=== PATIENT | female | born 1945 | race African-American/Black ===

== ENCOUNTER 2017-12-07 03:04 | Inpatient (IN) | payer OTHER ==
[~2017-12-07] VITALS: Ht 157.5 cm; Wt 77.1 kg
[2017-12-07] VITALS (7 sets, daily range): BP systolic 108–157; BP diastolic 60–85
[2017-12-07] MEDS ORDERED: ASPIRIN 81MG TABLET PO ONE (03:30)
[2017-12-07] MEDS ORDERED: NITROGLYCERIN OINT 1GM/INCH UDPKT TD ONE (03:30)
[2017-12-07] MEDS ORDERED: FUROSEMIDE 40MG/4ML VIAL IV ONE (03:30)
[2017-12-07] MEDS ORDERED: MULT-1195 MT (03:34)
[2017-12-07] MEDS ORDERED: VIT1TABL86 MT (03:34)
[2017-12-07] MEDS ORDERED: CALC0.253 PO (03:34)
[2017-12-07] MEDS ORDERED: HYDR100T26 MT (03:34)
[2017-12-07] MEDS ORDERED: LISI-604 MT (03:34)
[2017-12-07] MEDS ORDERED: ASPI-1159 MT (03:34)
[2017-12-07] MEDS ORDERED: CARV25TA47 MT (03:34)
[2017-12-07] MEDS ORDERED: LOVA20TA2 MT (03:34)
[2017-12-07] MEDS ORDERED: INSU100I28 SQ (03:34)
[2017-12-07] MEDS ORDERED: AMLO5TAB4 PO (03:34)
[2017-12-07] MEDS ORDERED: ALBU90AE INH (03:34)
[2017-12-07 04:56] LABS: BG BASE EXCESS -2.7 mmol/L (-2.0-2.0); BG BILEVEL POS AIRWAY PRESSURE 15/5; BG FRACTION INSPIRED OXYGEN 100; BG HCO3 ACT 20.6 mmol/L (22.0-26.0); BG PCO2 31.9 mmHg (35.0-45.0); BG PH 7.428 (7.350-7.450); BG PO2 363.9 mmHg (75.0-100.0); BG SAMPLE SITE LEFT RADIAL; BG VENT MODE MASK - BIPAP; BG VENT RATE 20 set
[2017-12-07 04:57] LABS: HEMATOCRIT. 31.8 % (36.0-48.0); HEMOGLOBIN. 10.6 g/dL (12.0-16.0); MEAN CORPUSCULAR HEMOGLOBIN 30.8 pg (28.0-32.0); MEAN CORPUSCULAR VOLUME 92.9 fL (81.0-99.0); MEAN PLATELET VOLUME 10.1 fl (7.4-10.4); PLATELET 206 x1000/uL (130-400); RED BLOOD CELL COUNT 3.43 mill/uL (4.2-5.4); RED CELL DISTRIBUTION WIDTH 14.6 % (11.6-14.6)
[2017-12-07 05:03] LABS: CHLORIDE 111 mEq/L (98-107)
[2017-12-07 05:08] LABS: INR 1.1; PARTIAL THROMBOPLASTIN TIME 24.3 sec (23.4-31.0); PROTHROMBIN TIME 10.6 sec (9.1-11.1)
[2017-12-07 07:29] LABS: PLATELET ESTIMATE NORMAL
[2017-12-07] MEDS ORDERED: MAGNESIUM/ALUMINUM HYDROXIDE/SIMETHICONE 30ML UDC PO PRN (12:00)
[2017-12-07] MEDS ORDERED: ACETAMINOPHEN 325MG TABLET PO PRN (12:00)
[2017-12-07] MEDS ORDERED: DEXTROSE 50% WATER 50ML SYRINGE IV PRN (12:00)
[2017-12-07] MEDS ORDERED: ONDANSETRON HCL 4MG/2ML INJ IV PRN (12:00)
[2017-12-07] MEDS ORDERED: GUAIFENESIN 200MG/10ML SUGAR FREE UDC PO PRN (12:00)
[2017-12-07] MEDS ORDERED: DIPHENHYDRAMINE 50MG/ML VIAL IV PRN (12:00)
[2017-12-07] MEDS ORDERED: IPRATROPIUM/ALBUTEROL 0.5-3(2.5)MG/3ML NEB INH PRN (12:00)
[2017-12-07] MEDS ORDERED: CLONIDINE 0.1MG TABLET PO PRN (12:00)
[2017-12-07] MEDS: IPRATROPIUM/ALBUTEROL 0.5-3(2.5)MG/3ML NEB HHN SCH ×4 (12:22→23:56)
[2017-12-07] MEDS: BLOOD SUGAR DIAGNOSTIC STRIP TEST SCH ×3 (12:30→21:02)
[2017-12-07] MEDS: INSULIN LISPRO 100 UNITS/ML SUBCUT SCH ×3 (13:00→21:00)
[2017-12-07] MEDS: SODIUM CHLORIDE 0.9% INJ 3ML FLUSH IVF SCH ×2 (13:45→21:59)
[2017-12-07] MEDS: FUROSEMIDE 40MG/4ML VIAL IVP SCH (16:36)
[2017-12-07] MEDS ORDERED: TEMAZEPAM 15MG CAPSULE PO PRN (18:45)
[2017-12-07] MEDS ORDERED: MAGNESIUM HYDROXIDE 400MG/5ML 30ML UDC PO PRN (18:45)
[2017-12-07] MEDS: OMEPRAZOLE 20MG CAPSULE EXTENDED RELEASE PO SCH (21:01)
[2017-12-07] MEDS: ATORVASTATIN CALCIUM 20MG TABLET PO SCH (21:01)
[2017-12-07] MEDS: LISINOPRIL 20MG TABLET PO SCH (21:01)
[2017-12-07] MEDS: HYDRALAZINE HCL 100MG TABLET PO SCH (21:01)
[2017-12-07] MEDS: CARVEDILOL 6.25 MG TABLET PO SCH (21:02)
[2017-12-08] VITALS (12 sets, daily range): BP systolic 122–165; BP diastolic 29–78
[2017-12-08] MEDS: IPRATROPIUM/ALBUTEROL 0.5-3(2.5)MG/3ML NEB HHN SCH ×5 (04:14→20:47)
[2017-12-08] MEDS: HYDRALAZINE HCL 100MG TABLET PO SCH ×3 (06:33→21:16)
[2017-12-08] MEDS: SODIUM CHLORIDE 0.9% INJ 3ML FLUSH IVF SCH ×2 (06:33→14:13)
[2017-12-08 06:35] LABS: BASOPHILS % 0.8 % (0.0-2.0); EOSINOPHILS % 3.2 % (0.0-5.0); HEMATOCRIT. 28.8 % (36.0-48.0); HEMOGLOBIN. 9.7 g/dL (12.0-16.0); LYMPHOCYTES % 19.9 % (20.0-50.0); MEAN CORPUSCULAR VOLUME 91.8 fL (81.0-99.0); MEAN PLATELET VOLUME 10.2 fl (7.4-10.4); MONOCYTES % 8.2 % (2.0-8.0); NEUTROPHILS % 67.9 % (40.0-76.0); PLATELET 206 x1000/uL (130-400); RED BLOOD CELL COUNT 3.14 mill/uL (4.2-5.4); RED CELL DISTRIBUTION WIDTH 14.4 % (11.6-14.6)
[2017-12-08 06:49] LABS: CHLORIDE 109 mEq/L (98-107)
[2017-12-08 07:04] LABS: LDL CHOLESTEROL 82 mg/dL (5-100)
[2017-12-08 07:05] LABS: CREATINE KINASE 146 IU/L (26-192); CREATINE KINASE MB FRACTION 1.9 ng/mL (0.5-3.6); HDL CHOLESTEROL 35 mg/dL (40-59)
[2017-12-08] MEDS: INSULIN LISPRO 100 UNITS/ML SUBCUT SCH ×4 (08:00→21:25)
[2017-12-08] MEDS: BLOOD SUGAR DIAGNOSTIC STRIP TEST SCH ×4 (08:20→21:25)
[2017-12-08] MEDS: FUROSEMIDE 40MG/4ML VIAL IVP SCH ×2 (09:15→17:40)
[2017-12-08] MEDS: OMEPRAZOLE 20MG CAPSULE EXTENDED RELEASE PO SCH ×2 (09:15→21:16)
[2017-12-08] MEDS: POTASSIUM CHLORIDE 20MEQ TABLET SR PO SCH (09:15)
[2017-12-08] MEDS: ASPIRIN 81MG EC TABLET PO SCH (09:15)
[2017-12-08] MEDS: CHOLECALCIFEROL (D3) 1000 UNIT TABLET PO SCH (09:16)
[2017-12-08] MEDS: LISINOPRIL 20MG TABLET PO SCH ×2 (09:16→21:16)
[2017-12-08] MEDS: CARVEDILOL 6.25 MG TABLET PO SCH ×2 (09:17→21:16)
[2017-12-08] MEDS: ATORVASTATIN CALCIUM 20MG TABLET PO SCH (21:16)
[2017-12-09] VITALS (11 sets, daily range): BP systolic 132–154; BP diastolic 45–89
[2017-12-09] MEDS: SODIUM CHLORIDE 0.9% INJ 3ML FLUSH IVF SCH ×2 (00:46→09:42)
[2017-12-09] MEDS: HYDRALAZINE HCL 100MG TABLET PO SCH ×2 (06:15→14:31)
[2017-12-09] MEDS: FUROSEMIDE 40MG/4ML VIAL IVP SCH (06:15)
[2017-12-09] MEDS: OMEPRAZOLE 20MG CAPSULE EXTENDED RELEASE PO SCH (06:23)
[2017-12-09] MEDS: BLOOD SUGAR DIAGNOSTIC STRIP TEST SCH ×2 (07:30→12:30)
[2017-12-09 07:32] LABS: BASOPHILS % 0.8 % (0.0-2.0); HEMATOCRIT. 29.1 % (36.0-48.0); HEMOGLOBIN. 9.8 g/dL (12.0-16.0); LYMPHOCYTES % 18.4 % (20.0-50.0); MEAN CORPUSCULAR HEMOGLOBIN 30.9 pg (28.0-32.0); MEAN CORPUSCULAR VOLUME 91.9 fL (81.0-99.0); MEAN PLATELET VOLUME 10.3 fl (7.4-10.4); MONOCYTES % 10.1 % (2.0-8.0); NEUTROPHILS % 66.7 % (40.0-76.0); PLATELET 215 x1000/uL (130-400); RED BLOOD CELL COUNT 3.16 mill/uL (4.2-5.4); RED CELL DISTRIBUTION WIDTH 14.2 % (11.6-14.6)
[2017-12-09] MEDS: INSULIN LISPRO 100 UNITS/ML SUBCUT SCH ×2 (08:00→12:37)
[2017-12-09] MEDS ORDERED: CALCITRIOL 0.25MCG CAPSULE PO SCH (09:00)
[2017-12-09] MEDS: IPRATROPIUM/ALBUTEROL 0.5-3(2.5)MG/3ML NEB HHN SCH (09:03)
[2017-12-09] MEDS: POTASSIUM CHLORIDE 20MEQ TABLET SR PO SCH (09:40)
[2017-12-09] MEDS: ASPIRIN 81MG EC TABLET PO SCH (09:40)
[2017-12-09] MEDS: CHOLECALCIFEROL (D3) 1000 UNIT TABLET PO SCH (09:40)
[2017-12-09] MEDS: LISINOPRIL 20MG TABLET PO SCH (09:41)
[2017-12-09] MEDS: CARVEDILOL 6.25 MG TABLET PO SCH (09:41)
== END 2017-12-09 15:20 | disposition home or self-care (01) | DRG 682 ==
LOC: ER 03:04 → 5EST 05:36 → EDBEDREQTM 05:38 → EDBEDREQ 05:38 → ENRESERV 06:54
PROVIDERS: ADMIT Internal Medicine; ATTEND Internal Medicine
PROC: 5A09357 Assistance with Respiratory Ventilation, Less than 24 Consecutive Hours, Continuous Positive Airway Pressure (ICD-10-PCS; principal; 2017-12-07)
DX: N17.9 Acute kidney failure, unspecified (principal); J96.90 Respiratory failure, unspecified, unspecified whether with hypoxia or hypercapnia; I50.33 Acute on chronic diastolic (congestive) heart failure; I13.0 Hypertensive heart and chronic kidney disease with heart failure and stage 1 through stage 4 chronic kidney disease, or unspecified chronic kidney disease; E46 Unspecified protein-calorie malnutrition; E78.00 Pure hypercholesterolemia, unspecified; N18.9 Chronic kidney disease, unspecified; I27.20 Pulmonary hypertension, unspecified; E11.22 Type 2 diabetes mellitus with diabetic chronic kidney disease; D72.829 Elevated white blood cell count, unspecified; M10.9 Gout, unspecified; Z82.49 Family history of ischemic heart disease and other diseases of the circulatory system; Z83.3 Family history of diabetes mellitus; Z85.3 Personal history of malignant neoplasm of breast; Z92.3 Personal history of irradiation; Z79.899 Other long term (current) drug therapy; Z79.82 Long term (current) use of aspirin; Z80.8 Family history of malignant neoplasm of other organs or systems; Z79.4 Long term (current) use of insulin; Z90.10 Acquired absence of unspecified breast and nipple; Z68.31 Body mass index [BMI] 31.0-31.9, adult
CPT/HCPCS: 36415; 36600; 71045; 80048; 80053; 80061; 82550; 82553; 82805; 82962; 83735; 83880; 84484; 85025; 85379; 85610; 85730; 93005; 93306; 93970; 94640; 94660; 96374; 96375; 97116; 97162; 99291; J1815; J1940; J7620